=== PATIENT | male | born 1980 | race Caucasian/White ===

== ENCOUNTER → 2018-08-18 | Outpatient (CLI) | payer OTHER | END | disposition home or self-care (01) | LOC: CVU 09:57 | PROVIDERS: ATTEND Internal Medicine Cardiovascular Disease | DX: R94.31 Abnormal electrocardiogram [ECG] [EKG] (principal); R00.2 Palpitations | CPT/HCPCS: 0399T; 93306 ==

== ENCOUNTER 2020-10-01 13:06 | Emergency (ER) | payer OTHER ==
[~2020-10-01] VITALS: Ht 175.3 cm; Wt 54.8 kg
[2020-10-01 14:29] LABS: BASOPHILS % (AUTO) 1 % (0-1); EOSINOPHILS % (AUTO) 0 % (1-7); LYMPHOCYTES % (AUTO) 19 % (22-44); MEAN CORPUSCULAR HEMOGLOBIN 34.6 pg (27.5-34.5); MEAN CORPUSCULAR HGB CONC 34.2 g/dL (33.2-36.2); MEAN PLATELET VOLUME 7.3 fL (7.4-10.4); MONOCYTES % (AUTO) 7 % (2-9); NEUTROPHILS % (AUTO) 74 % (42-75); PLATELET COUNT 356 x10^3/uL (130-400); RED BLOOD COUNT 4.56 x10^6/uL (4.38-5.82); RED CELL DISTRIBUTION WIDTH 12.1 % (9.4-14.8)
[2020-10-01 14:31] LABS: MD NO
[2020-10-01 14:39] LABS: ALBUMIN 3.9 g/dL (3.4-5.0); ANION GAP 8 mmol/L (5-15); CALCIUM 9.2 mg/dL (8.5-10.1); CHLORIDE 106 mmol/L (98-107)
[2020-10-01 14:44] LABS: ALANINE AMINOTRANSFERASE 29 U/L (12-78); ALKALINE PHOSPHATASE 77 U/L (45-117); BILIRUBIN,TOTAL 0.6 mg/dL (0.2-1.0); CREATININE 0.99 mg/dL (0.7-1.3); TOTAL PROTEIN 7.7 g/dL (6.4-8.2)
--- NOTE | 2020-10-01 15:19 | NUR ---
relay operator: pt from lobby to room 14
--- NOTE | 2020-10-01 15:30 | NUR ---
TASK RN: PT AMBULATORY TO ROOM FROM [facility]. BP & SP02 MONITORS PLACED. VSS, CALL LIGHT W/I REACH. AWAITING ER PROVIDER SAMUEL
--- NOTE | 2020-10-01 15:31 | NUR ---
TASK RN: ESTUARDO RPT TO [facility]
--- NOTE | 2020-10-01 15:53 | NUR ---
PROVIDER AT BEDSIDE FOR ASSESSMENT
[2020-10-01 15:57] LABS: MICROSCOPIC NOT IND
[2020-10-01] MEDS ORDERED: HYDROmorphone 2 MG/ML, 1ML IVPush PRN (16:00)
[2020-10-01] MEDS ORDERED: ONDANSETRON 2MG/ML, 2ML IVPush ONE (16:00)
[2020-10-01] MEDS ORDERED: SODIUM CHLORIDE FLUSH 10ML SYR IVF ONE (16:00)
[2020-10-01] MEDS ORDERED: SODIUM CHLORIDE 0.9% 1,000ML IVBOLUS ONE (16:00)
[2020-10-01] MEDS ORDERED: ONDANSETRON 2MG/ML, 2ML ONE (16:03)
[2020-10-01] MEDS ORDERED: HYDROmorphone 2 MG/ML, 1ML ONE (16:03)
[2020-10-01] MEDS ORDERED: OMNIPAQUE 350 MG/ML, 100ML BOTTLE ONE (16:29)
[2020-10-01 17:15] VITALS: BP 123/83
--- NOTE | 2020-10-01 17:16 | NUR ---
PT RESTING ON GURNEY. MANAGER HOUSEKEEPING AT BEDSIDE. PTS DAUGHTER AT BEDSIDE. PT STATES PAIN "BETTER" 12/29. VSS. NAD. CALL LIGHT W/IN REACH.
--- NOTE | 2020-10-01 17:20 | NUR ---
DR. QUIROZ AT BEDSIDE FOR COVID SWAB AND TO DISCUSS ADMINSSION. QUESTIONS ANSWERED
--- NOTE | 2020-10-01 18:11 | NUR ---
REPORT GIVEN TO LAWN SPRINKLER INSTALLER
[2020-10-01] MEDS ORDERED: EPINEPHRINE 1 MG/ML, 1ML ONE (18:51)
[2020-10-01] MEDS ORDERED: BUPIVACAINE/PF 0.5% ONE (18:51)
--- NOTE | 2020-10-01 19:02 | NUR ---
REPORT GIVEN TO MODESTO DE LA GARZA
--- NOTE | 2020-10-01 19:12 | NUR ---
THIS RN WAS PLACED AT PRIMARY RN BY ANOTHER STAFF MEMBER. I NEVER SAW THIS PATIENT. I WAS TOLD PATIENT SENT TO [place] VIA [facility]. WILL TAKE OUT OF TRACKING BOARD
[2020-10-01] MEDS ORDERED: FENTANYL PF 250 MCG/5ML ONE (19:26)
[2020-10-01] MEDS ORDERED: MIDAZOLAM 1 MG/ML, 2ML ONE (19:26)
[2020-10-01] MEDS ORDERED: ROCURONIUM 10MG/ML,5ML ONE (19:27)
[2020-10-01] MEDS ORDERED: NEOSTIGMINE 1 MG/ML, 10ML ONE (19:27)
[2020-10-01] MEDS ORDERED: PROPOFOL 10 MG/ML, 20ML ONE (19:27)
[2020-10-01] MEDS ORDERED: GLYCOPYRROLATE 0.2MG/1ML, 5ML ONE (19:27)
[2020-10-01] MEDS ORDERED: CEFAZOLIN 1,000 MG ONE (19:27)
[2020-10-01] MEDS ORDERED: SUCCINYLCHOLINE 20 MG/ML, 10ML ONE (19:27)
[2020-10-01] MEDS ORDERED: OXYC5TAB98 PO (20:08)
[2020-10-01] MEDS ORDERED: CLINDAMYCIN 150 MG/ML, 6ML ONE (20:12)
[2020-10-01] MEDS ORDERED: METRONIDAZOLE PMX 500MG/100ML 100 ML ONE (20:12)
[2020-10-01] MEDS ORDERED: OXYcodone 5 MG/5 ML ORAL.SOL UDC PO PRN (20:30)
[2020-10-01] MEDS ORDERED: FENTANYL PF 100 MCG/2ML IV PRN (20:30)
[2020-10-01] MEDS ORDERED: LABETALOL 5MG/ML, 20ML IV PRN (20:30)
[2020-10-01] MEDS ORDERED: hydrALAzine 20 MG/ML, 1ML IV PRN (20:30)
[2020-10-01] MEDS ORDERED: morphine SULFATE 10 MG/ML, 1ML IVPush PRN (20:30)
[2020-10-01] MEDS ORDERED: HYDROmorphone 1 MG/ML, 1ML INJ IVPush PRN (20:30)
[2020-10-01] MEDS ORDERED: ACETAMINOPHEN 325 MG TABLET PO PRN (20:30)
[2020-10-01] MEDS ORDERED: ONDANSETRON 2MG/ML, 2ML IVPush PRN (20:30)
[2020-10-01] MEDS ORDERED: SUGAMMADEX 200 MG/2 ML IVPush ONE (20:55)
[2020-10-01] MEDS ORDERED: FENTANYL PF 100 MCG/2ML ONE (21:15)
[2020-10-01] MEDS ORDERED: MEPERIDINE/PF 25MG/ML,1ML ONE (21:15)
[2020-10-01] MEDS: MEPERIDINE/PF 25MG/0.5ML IVPush PRN ×2 (21:18→21:21)
[2020-10-01] MEDS ORDERED: ACETAMINOPHEN 650 MG/20.3 ML UDC ONE (21:53)
[2020-10-01] MEDS ORDERED: OXYcodone 5 MG/5 ML ORAL.SOL UDC ONE (21:54)
== END 2020-10-01 23:30 | disposition home or self-care (01) ==
LOC: ED 17:00
DX: D72.829 Elevated white blood cell count, unspecified (principal); Z20.822 Contact with and (suspected) exposure to COVID-19; R11.2 Nausea with vomiting, unspecified; R10.33 Periumbilical pain; R10.32 Left lower quadrant pain; R10.84 Generalized abdominal pain; K59.00 Constipation, unspecified
CPT/HCPCS: 36415; 44970; 74177; 80053; 81003; 83690; 85025; 87635; 88304; 96361; 96374; 96375; 99285; J0171; J0330; J0690; J1170; J2175; J2250; J2405; J2704; J2710; J3010; J7030; Q9967; S0020; S0077